=== PATIENT | male | born 1990 | race American Indian/Alaskan Native ===

== ENCOUNTER 2021-12-08 21:28 | Emergency (ER) | payer SELFPAY ==
--- NOTE | 2021-12-09 02:58 | Emergency Department Report ---
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 Patient presented to the ER stating that he sustained a head injury while at work. Patient stated that he was under a table and he lifted his head and accidentally injured his head. Patient stated that he had mild headache in itially but it went away. Patient denied any loss of consciousness. He also denied any focal weakness numbness or tingling sensation. Patient stated that he is feeling much better now. MD Complaint: head injury -: Sudden, hour(s) (5) Mechanism of Injury: work related injury Location: occipital Loss of Consciousness: no Place: work Radiation: none Severity: moderate Quality: sharp Provoking factors: none known Other Injuries: none Associated Symptoms: denies other symptoms. denies: confusion, amnesia, repetitive questioning, vision changes, nausea, vomiting, vertigo, syncope, numbness, weakness, tingling, neck pain ED Review of Systems ROS: Stated complaint: HIT HEAD/WORKER COMP Other details as noted in HPI Comment: All other systems reviewed and negative Constitutional: denies: chills, fever Respiratory: denies: cough, shortness of breath, SOB with exertion Gastrointestinal: denies: abdominal pain, nausea Musculoskeletal: denies: back pain Neurological: denies: headache, weakness, numbness, paresthesias, confusion ED Physical Exam - General Limitations: No Limitations General appearance: alert, in no apparent distress - Head Head exam: Present: atraumatic, normocephalic, normal inspection - Eye Eye exam: Present: normal appearance - ENT ENT exam: Present: normal exam, normal orophraynx, mucous membranes moist - Neck Neck exam: Present: normal inspection, full ROM. Absent: tenderness, meningismus - Respiratory Respiratory exam: Present: normal lung sounds bilaterally. Absent: chest wall tenderness - Cardiovascular Cardiovascular Exam: Present: regular rate, normal rhythm, normal heart sounds - GI/Abdominal GI/Abdominal exam: Present: soft, normal bowel sounds. Absent: distended, tenderness, guarding, rebound, rigid, organomegaly, mass, bruit, pulsatile mass, hernia - Extremities Exam Extremities exam: Present: normal inspection, full ROM, normal capillary refill. Absent: tenderness - Back Exam Back exam: Present: normal inspection, full ROM. Absent: CVA tenderness (R), CVA tenderness (L) - Neurological Exam Neurological exam: Present: alert, oriented X3, CN II-XII intact, normal gait, reflexes normal. Absent: motor sensory deficit - Psychiatric Psychiatric exam: Present: normal mood - Skin Skin exam: Present: warm, intact, normal color ED Course Vital Signs 12/08/21 21:47 Temperature 98.2 F Pulse Rate 77 Respiratory 18 Rate Blood Pressure 118/77 O2 Sat by Pulse 99 Oximetry - Medical Decision Making Patient is a 31 years old male with no significant past medical history. Patient presented to the ER stating that he sustained a head injury while at work. Patient stated that he was under a table and he lifted his head and accidentally injured his head. Patient stated that he had mild headache initially but it went away. Patient denied any loss of consciousness. He also denied any focal weakness numbness or tingling sensation. Patient stated that he is feeling much better now. Patient remained stable in the ER with a stable vital sign. No clinical evidence to suggest intracranial bleed. Patient given instruction of head injury and advised to return to the ER if he develop any increased headache, loss of consciousness, nausea or vomiting. Patient advised to follow-up with his primary doctor in the next 2 to 3 days and to return to the ER if symptoms not improved. Critical care attestation.: If time is entered above; I have spent that time in minutes in the direct care of this critically ill patient, excluding procedure time. ED Disposition Clinical Impression: Acute head injury Disposition: 01 HOME / SELF CARE / HOMELESS Is pt being admited?: No Condition: Stable Instructions: Head Injury, Adult Referrals: PRIMARY CARE, [Referring] - 3-5 Days Forms: Work/School Release Form(ED)
[2021-12-09 04:40] VITALS: BP 130/70
== END 2021-12-09 04:41 | disposition home or self-care (01) ==
LOC: ED 21:28
DX: S09.90XA Unspecified injury of head, initial encounter (principal); X58.XXXA Exposure to other specified factors, initial encounter; Y93.89 Activity, other specified; Y92.89 Other specified places as the place of occurrence of the external cause; Y99.8 Other external cause status
CPT/HCPCS: 99282